=== PATIENT | male | born 1990 | race Two or more races ===

== ENCOUNTER 2023-05-24 22:18 | Emergency (ER) | payer OTHER ==
[~2023-05-24] VITALS: Ht 172.7 cm; Wt 108.9 kg
[2023-05-25] MEDS ORDERED: ZITHROMAX500 MG PO (01:25)
[2023-05-25] MEDS ORDERED: PHENAGIL TABLE1 EACH PO (01:25)
[2023-05-25] MEDS ORDERED: ZYNCOF 20-400120 ML PO (01:25)
[2023-05-25] MEDS ORDERED: DOLOGESIC-DF 51 EACH PO (01:25)
== END 2023-05-25 01:30 ==
LOC: ER 22:18
DX: A49.3 Mycoplasma infection, unspecified site (principal)

== ENCOUNTER 2023-08-29 16:49 | Emergency (ER) | payer OTHER ==
[~2023-08-29] VITALS: Ht 172.7 cm; Wt 97.5 kg
[~2023-08-29 16:49] MED LIST: DOLOGESIC-DF 51 EACH PO; PHENAGIL TABLE1 EACH PO; ZITHROMAX500 MG PO; ZYNCOF 20-400120 ML PO
[2023-08-29] MEDS ORDERED: JARDIANCE25 MG (17:00)
[2023-08-29] MEDS ORDERED: COZAAR25 MG (17:00)
[2023-08-29] MEDS ORDERED: DICLOFENAC SODI75 MG PO (20:52)
== END 2023-08-29 21:05 | disposition home or self-care (01) ==
LOC: ER 16:50
DX: S20.212A Contusion of left front wall of thorax, initial encounter (principal); W18.39XA Other fall on same level, initial encounter; Y93.89 Activity, other specified; Y92.89 Other specified places as the place of occurrence of the external cause; Y99.8 Other external cause status; E11.9 Type 2 diabetes mellitus without complications; Z79.84 Long term (current) use of oral hypoglycemic drugs; I10 Essential (primary) hypertension